=== PATIENT | female | born 1985 | race American Indian/Alaskan Native ===

== ENCOUNTER 2021-05-04 04:49 | Emergency (ER) | payer SELFPAY ==
[2021-05-04 06:00] VITALS: BP 178/105
--- NOTE | 2021-05-04 07:53 | Emergency Department Report ---
ED ENT HPI - General Chief complaint: Dental/Oral Stated complaint: TOOTH PAIN Time Seen by Provider: 05/04/21 07:46 Source: patient Mode of arrival: Ambulatory Limitations: No Limitations - History of Present Illness Initial comments: 35-year-old female with no past medical history presents to the emergency department for evaluation of toothache that started early this morning. She states that she took 1 amoxicillin and ibuprofen which improved the pain to 3 out of 10. She denies fever or purulent drainage. MD complaint: tooth pain -: Gradual, hour(s) Location: tooth # (19) Severity: mild Severity scale (0 -10): 3 Quality: aching Consistency: constant Context- Dental: poor dental care Associated Symptoms: toothache. denies: fever, cough, gum swelling, pain with swallowing, sore throat, tinnitus, hearing loss, discharge from ear, rhinorrhea - Related Data Previous Rx's Medication Instructions Recorded Last Taken Type Amoxicillin [Trimox CAP] 500 mg PO BID #14 capsule 05/04/21 Unknown Rx Ketorolac [Toradol] 10 mg PO Q6H PRN #12 tab 05/04/21 Unknown Rx Allergies Allergy/AdvReac Type Severity Reaction Status Date / Time No Known Allergies Allergy Verified 05/04/21 05:52 ED Dental HPI - General Chief complaint: Dental/Oral Stated complaint: TOOTH PAIN Time Seen by Provider: 05/04/21 07:46 Source: patient Mode of arrival: Ambulatory Limitations: No Limitations - Related Data Previous Rx's Medication Instructions Recorded Last Taken Type Amoxicillin [Trimox CAP] 500 mg PO BID #14 capsule 05/04/21 Unknown Rx Ketorolac [Toradol] 10 mg PO Q6H PRN #12 tab 05/04/21 Unknown Rx Allergies Allergy/AdvReac Type Severity Reaction Status Date / Time No Known Allergies Allergy Verified 05/04/21 05:52 ED Review of Systems ROS: Stated complaint: TOOTH PAIN Other details as noted in HPI Comment: All other systems reviewed and negative Constitutional: denies: chills, fever Eyes: denies: eye pain ENT: dental pain. denies: ear pain, throat pain, hearing loss, epistaxis, congestion Respiratory: denies: cough, shortness of breath Cardiovascular: denies: chest pain, palpitations, dyspnea on exertion Endocrine: no symptoms reported Gastrointestinal: denies: abdominal pain, nausea, vomiting Genitourinary: denies: urgency, dysuria, frequency Musculoskeletal: denies: back pain Skin: denies: rash, lesions Psychiatric: denies: anxiety Hematological/Lymphatic: denies: easy bleeding, easy bruising ED Past Medical Hx - Past Medical History Previous Medical History?: No - Surgical History Past Surgical History?: No - Medications Home Medications: Home Medications Medication Instructions Recorded Confirmed Last Taken Type Amoxicillin [Trimox CAP] 500 mg PO BID #14 capsule 05/04/21 Unknown Rx Ketorolac [Toradol] 10 mg PO Q6H PRN #12 tab 05/04/21 Unknown Rx ED Physical Exam - General Limitations: No Limitations General appearance: alert, in no apparent distress - Head Head exam: Present: atraumatic, normocephalic - Eye Eye exam: Present: normal appearance. Absent: conjunctival injection - Expanded ENT Exam Expanded Mouth exam: Present: normal external inspection, tongue normal Teeth exam: Present: dental caries, dental tenderness # (19), other (No dental a bscess noted) - Neck Neck exam: Present: normal inspection. Absent: lymphadenopathy - Respiratory Respiratory exam: Present: normal lung sounds bilaterally. Absent: respiratory distress, wheezes, rales, rhonchi - Cardiovascular Cardiovascular Exam: Present: regular rate, normal heart sounds - GI/Abdominal GI/Abdominal exam: Present: soft, normal bowel sounds. Absent: distended, tenderness, guarding, rebound, rigid - Extremities Exam Extremities exam: Present: normal inspection - Back Exam Back exam: Present: normal inspection. Absent: CVA tenderness (R), CVA tenderness (L) - Neurological Exam Neurological exam: Present: alert, oriented X3 - Psychiatric Psychiatric exam: Present: normal affect, normal mood - Skin Skin exam: Present: warm, dry, intact, normal color ED Course Vital Signs 05/04/21 05:52 Temperature 98.5 F Pulse Rate 65 Respiratory 17 Rate Blood Pressure 178/105 [Right] O2 Sat by Pulse 99 Oximetry ED Medical Decision Making - Medical Decision Making 35-year-old female with no past medical history presents to the emergency department for evaluation of toothache that started early this morning. She states that she took 1 amoxicillin and ibuprofen which improved the pain to 3 out of 10. She denies fever or purulent drainage. No dental abscess noted, but noted to have erythema and mild edema to gums surrounding tooth #19. Tooth #19 also noted to have dental carry. Patient will be treated with 1 week history of amoxicillin and advised to follow-up with dentist for further evaluation and management. She verbalized understanding of and agreement with plan of care. Critical care attestation.: If time is entered above; I have spent that time in minutes in the direct care of this critically ill patient, excluding procedure time. ED Disposition Clinical Impression: Pain due to dental caries Disposition: HOME / SELF CARE / HOMELESS Is pt being admited?: No Does the pt Need Aspirin: No Condition: Stable Instructions: Diet and Dental Disease Additional Instructions: Take medication as prescribed. Follow-up with dentist. Prescriptions: Ketorolac [Toradol] 10 mg PO Q6H PRN #12 tab PRN Reason: Pain Amoxicillin [Trimox CAP] 500 mg PO BID #14 capsule Referrals: [facility] [Outside] - 3-5 Days Time of Disposition: 07:53
== END 2021-05-04 08:08 | disposition home or self-care (01) ==
LOC: ED 04:49
DX: K02.9 Dental caries, unspecified (principal)
CPT/HCPCS: 99282